=== PATIENT | male | born 1955 | race Caucasian/White ===

== ENCOUNTER 2022-12-10 20:31 | Emergency (ER) | payer BC, SELFPAY ==
[2022-12-10] VITALS (15 sets, daily range): BP systolic 84–97; BP diastolic 54–78; PULSE 108–122; RESP 14–30; TEMP 36.4; O2SAT 96
--- NOTE | 2022-12-10 20:30 | RT.EKG_ITS ---
APPROVED REPORT Exam: Resting ECG Reason for Exam: Abd pain Patient Location: E HR:111 bpm ECG Measurements Heart Rate 111 AXIS NH 145 P 48 QRSd 86 QRS 32 QT [id number] T 57 QTc 0 Conclusion Gender not entered, assumed to be male for purpose of ECG interpretation Sinus tachycardia...rate> 99
--- NOTE | 2022-12-10 20:49 | ED.GENADUL_ITS ---
Discharge Plan Disposition Patient Disposition: Home Condition: Stable Discharge Details Clinical Impression: Nausea & vomiting Primary Care Provider: Torsten Irene ED Provider: Adeel Carnes Home Meds and New Rx's Prescriptions: Continued aspirin [Adult Aspirin Regimen] 81 mg tablet,delayed release (DR/EC) 81 mg PO DAILY losartan 100 mg tablet 100 mg PO DAILY pantoprazole 40 mg tablet,delayed release (DR/EC) 40 mg PO DAILY sertraline 50 mg tablet 50 mg PO DAILY spironolactone 25 mg tablet 25 mg PO DAILY prochlorperazine maleate 10 mg tablet 10 mg PO PRN PRN glimepiride 1 mg tablet oxycodone 5 mg tablet 5 - 10 mg PO PRN PRN Patient Comments: TAKE ONE TO TWO TABLETS BY MOUTH EVERY 4 HOURS NEEDED FOR PAIN Eliquis 5 mg tablet 5 mg PO BID Patient Comments: TAKE ONE TABLET BY MOUTH TWICE A DAY Creon 36,000-114,000- 180,000 unit capsule,delayed release(DR/EC) 2 cap PO TID Patient Comments: TAKE TWO CAPSULES BY MOUTH WITH MEALS THREE TIMES A DAY AND ONE CAPSULE WITH A SNACK FOR A TOTAL OF 9 CAPSULES PER DAY Discharge Instructions Instructions: Acute Nausea and Vomiting (ED) Additional Instructions: Your blood work and imaging did not show any new concerning findings at this time Follow up with Dr. Murrell as scheduled if you feel more ill, have high fevers or persistent vomiting return to the emergency department Medical Decision Making 67 yo male with hx of pancreatic cancer who started chemotherapy last week, comes in with intermittent n/v and decreased po intake since. HAs had intermittent abdominal pain as well but states this started before chemo and has no pain currently. HE denies fevers, chills, chest pain, dyspnea. HE arrives caox4 speaking clearly. He is tachycardic on my exam at 110bpm and bp 100/60, no fever and normal oxygenation. Abdomen is soft with mild mid abdomen tenderness, no guarding or rebound. Suspect this is related to his cancer treatment, will treat with fluids, and no relief with zofran given with ems, qtc reassuring, will trial droperidol. Will also check cbc, cmp, lipase. I recommended ct to rule out acute surgical pathology but patient declines as he states pain is chronic and unchanged, and he has decision making capacity and understands risks of missing diagnoses such as sbo including disability and and is willing to accept these risks. Will reassess after labs and medications/fluids. pt feeling better after droperidol and oxycodone which he requested, cmp still pending but does have bands on cbc and procal is 1.5, will proceed with imaging of his chest and abdomen/pelvis to evaluate for potential infectious etiologies such as pneumonia or abscess. imaging shows no acute findings, he has a hr now of 80 and bp 110/70 so his prior dehydration/hypovolemia seems corrected and he is tolerating po. Will discuss case with oncology spoke with oncology Dr. Joyner at [facility] [place] who reviewed the case and during recovery phase from chemo bandemia is not unexpected, given patient feels better, stable vitals, not neutropenic and no fevers no indication for iv abx or hospitalization. PAtient feels well enough for d/c and has f/u later today with his oncologist Dr. Murrell, return precautions given Differential Diagnosis Differential Diagnosis: chemo reaction, dehydration, electrolyte abnormality Medical Records Medical records reviewed: Yes I reviewed the patient's medical records. Imaging Data Radiologic Study: Attestation: I personally reviewed and interpreted this imaging study as follows: Imaging: CT Scan Radiologist's impression: IMPRESSION: 1. No acute findings. No evidence of pulmonary emboli, aneurysm or dissection. 2. Mild emphysema. IMPRESSION: Pancreatic mass consistent with known pancreatic cancer. Multiple lesions seen throughout the liver, majority of which are cysts. Other hypodensities are too small to characterize. Suggest comparison with prior studies when available to evaluate for stability. Colonic diverticulosis. Fluid levels in the colon which are nonspecific but can be seen with gastroenteritis. Mild circumferential wall thickening in an underdistended bladder. This may represent mild cystitis versus underdistention artifact. Lab Data Lab results reviewed: Yes I reviewed the patient's lab results. ECG Data Attestation: I personally reviewed and interpreted this ECG (s) as follows: Prior ECG tracings: available for review Interpretation: sinus rhythm, rate of 98, qtc 424, no stemi HPI General Mode of arrival: EMS . Date/Time Provider Initiated Documentation: 12/10/22 20:37 . Limitations to Documentation: no limitations . Information obtained by: patient and family . History of Present Illness 67 year old M presents to the emergency department with the chief complaint of n/v, described as moderate, Patient started experiencing this day(s) (7) and it has been intermittent. No relieving factors improve symptom(s), No exacerbating factors reported . Patient notes denies chest pain, fever/chills and shortness of breath. Patient did receive the following treatments prior to arrival, none Related Data Home Medications Medication Instructions Recorded Confirmed losartan 100 mg tablet 100 mg PO DAILY 08/05/20 12/10/22 pantoprazole 40 mg tablet,delayed 40 mg PO DAILY 08/05/20 12/10/22 release sertraline 50 mg tablet 50 mg PO DAILY 08/05/20 12/10/22 spironolactone 25 mg tablet 25 mg PO DAILY 08/05/20 12/10/22 aspirin 81 mg tablet,delayed 81 mg PO DAILY 10/22/22 12/10/22 release (Adult Aspirin Regimen) apixaban 5 mg tablet (Eliquis) 5 mg PO BID 12/10/22 12/10/22 glimepiride 1 mg tablet mg 12/10/22 12/10/22 [id number]-[id number] 2 cap PO TID 12/10/22 12/10/22 36,000-114,000-180,000 unit capsule,delay rel (Creon) oxycodone 5 mg tablet 5 - 10 mg PO PRN PRN 12/10/22 12/10/22 prochlorperazine maleate 10 mg 10 mg PO PRN PRN 12/10/22 12/10/22 tablet Allergies Allergy/AdvReac Type Severity Reaction Status Date / Time hydrochlorothiazide Allergy Unverified 12/10/22 20:37 midazolam [From Versed] AdvReac oversedatio Verified 08/04/22 08:30 n erythromycin Allergy Unknown Uncoded 10/22/22 08:52 General Stated Complaint: Dizzy/Sync NADINE: 3 Review of Systems All systems reviewed & are unremarkable except as noted in HPI and below Constitutional Constitutional: Denies chills and Denies fever(s) Cardiovascular Cardiovascular: Denies chest pain and Denies dyspnea Respiratory Respiratory: Denies cough and Denies dyspnea Musculoskeletal Musculoskeletal: Denies joint swelling Integumentary/Breasts Skin/Breast: Denies rash PFSH All Active Problems (Updated 12/11/22 @ 00:07 by Adeel Carnes MD) Nausea & vomiting (Acute) BMI 40.0-44.9, adult (Acute) Tobacco use disorder (Acute) Liver lesion (Acute) Mononeuritis multiplex (Acute) Diabetes mellitus (Chronic) Pain, foot (Acute) Corns and callosities (Acute) Nail dystrophy (Acute) Left carpal tunnel syndrome (Acute) Medical History (Updated 12/11/22 @ 00:07 by Adeel Carnes MD) AAA (abdominal aortic aneurysm) Acquired cystic kidney disease Depression GERD (gastroesophageal reflux disease) Hyperlipidemia Hypertension Impaired fasting glucose Obesity Surgical History (Updated 10/26/22 @ 15:13 by Shanda Wren RN) History of appendectomy History of knee surgery History of vascular surgery Hx of abdominal surgery S/P vascular surgery (10/13/22) s/p axillary-femoral bypass with synthetic conduit, right Status post AAA (abdominal aortic aneurysm) repair Social History Smoking/Tobacco Use Status: Current every day Smoking risk assessment performed?: Yes Alcohol Intake: never Drug use: Never Household members: spouse and children Housing: house Number of Children: 4 Pets and animals: Yes Pets and animals: cat(s) and dog(s) What is your relationship status?: Panel score (0-1 are the most socially isolated patients): 1 What type of physical activity do you participate in: none Seatbelt use: always Do you feel safe at home: Yes Do you feel safe in your relationship?: Yes Exam Const General: no acute distress Orientation: alert HENCT Head: normal to inspection Ears: external ears normal General nose exam: external nose normal Mouth: moist mucous membranes Eyes General: appearance normal, both eyes and all related structures Neck Neck: normal visual inspection Resp Effort & Inspection: normal respiratory effort and able to speak in complete sentences Auscultation: clear to auscultation bilaterally Cardio Jugular venous pressure: no JVD Rate: regular rate Heart Sounds: no murmurs GI Palpation: soft and nontender Skin General skin exam: no rashes or lesions noted Neuro General: patient alert and patient oriented x3 Extrem General: normal to inspection Psych Mental Status: mental status grossly normal Course Vital Signs Vital signs: Vital Signs Temperature 36.4 C L 12/10/22 20:28 Pulse 118 H 12/10/22 20:28 Respiratory Rate 18 12/10/22 20:28 Blood Pressure 97/78 L 12/10/22 20:28 Pulse Oximetry 96 12/10/22 20:28 Temperature 36.4 C L 12/10/22 20:28 Temperature Source Oral 12/10/22 20:28 Pulse 118 H 12/10/22 20:28 Respiratory Rate 18 12/10/22 20:28 Blood Pressure 97/78 L 12/10/22 20:28 Blood Pressure Position Sitting 12/10/22 20:28 Pulse Oximetry 96 12/10/22 20:28 Oxygen Delivery Method Room Air 12/10/22 20:28 Oxygen Flow Rate 0 12/10/22 20:28 Pain Level 8 12/10/22 20:28
[2022-12-10] MEDS: HYDROmorphone 2 MG/ML SYR 1 MG IVP (21:01)
[2022-12-10] MEDS: Droperidol 5 MG/2 ML VIAL 2.5 MG IVP (21:02)
[2022-12-10] MEDS: Normal Saline 1,000 ML 1000 ML IV (21:04)
[2022-12-10 21:08] LABS: Abs Immature Grans 0.01 10^3/uL (0.0-0.06); HCT 44.3 % (40.0-50.0); HGB 14.6 g/dL (13.5-17.5); MCH 28.7 pg (27.0-33.0); MCV 87 fL (80-95); MPV 10.2 fL (8.0-11.0); Platelet Count 204 10^3/uL (130-400); RBC 5.08 10^6/uL (4.36-5.78); RDW 12.9 % (11.8-14.1); RDW-SD 41.1 fL
[2022-12-10 21:14] LABS: Lipase 15 U/L (16-77); Magnesium 1.9 mg/dL (1.8-2.4)
[2022-12-10 21:15] LABS: INR 1.2 (0.9-1.1); PTT Activated 23.6 sec (21.5-31.9); Prothrombin Time 12.6 sec (9.3-11.0)
[2022-12-10] MEDS: oxyCODONE 5 MG TAB PO (21:19)
[2022-12-10 21:29] LABS: Absolute Eosinophil Count 0.02 10^3/uL (0.0-0.7); Absolute Lymphocyte Count 0.26 10^3/uL (1.2-3.4); Absolute Monocyte Count 0.14 10^3/uL (0.1-0.8)
[2022-12-10 21:30] LABS: Absolute Neutrophil Count 1.17 10^3/uL (1.2-6.7); Bands % 18; Metamyelocytes % 3; Myelocytes % 2; Promyelocytes % 2
[2022-12-10 21:31] LABS: Diff Comment Manual Differential; RBC Morphology Normal
[2022-12-10 21:37] LABS: COVID-19 PCR Negative (Negative); Influenza A PCR Negative (Negative); Influenza B PCR Negative (Negative); RSV PCR Negative (Negative)
[2022-12-10 21:49] LABS: Source Nasopharynx
[2022-12-10 21:56] LABS: Procalcitonin 1.5 ng/mL
[2022-12-10 22:22] LABS: ALT 121 U/L (16-63); AST 50 U/L (15-37); Albumin 2.1 g/dL (3.4-5.0); Alkaline Phosphatase 277 U/L (46-116); Anion Gap 13.3 mmol/L (3-11); BUN 41 mg/dL (7-18); Bilirubin, Total 1.7 mg/dL (0.2-1.0); CO2 20.7 mmol/L (21.0-32.0); CREATININE 1.6 mg/dL (0.70-1.30); Calcium 8.8 mg/dL (8.5-10.1); Chloride 103 mmol/L (98-107); Estimated GFR 46.93 (mL/min/1.73m2); Glucose 240 mg/dL (74-106); Potassium 4.4 mmol/L (3.5-5.1); Sodium 137 mmol/L (136-145); TSH 1.96 uIU/mL (0.36-3.74); Total Protein 5.5 g/dL (6.4-8.2)
[2022-12-10] MEDS: Omnipaque 350 MG/ML 100 ML BTL IJ (22:51)
[2022-12-10] MEDS: Normal Saline - Diluent 50 ML VIAL IJ (22:52)
--- NOTE | 2022-12-10 23:00 | DI.CT_ITS ---
Exam(s) CT CHEST PE ABD PELVIS W EXAM: CT CHEST PE ABD PELVIS W CLINICAL HISTORY: pancreatic cancer, hypotension, sepsis. TECHNIQUE: Imaging Protocol: Axial CT angiography was performed with multi-slice acquisition and mu lti-planar and/or 3D reconstructions. CONTRAST MATERIAL: Intravenous: Omnipaque 350contrast volume:100 mL COMPARISON: No exams were available for comparison FINDINGS: CHEST: Tracheobronchial tree: Patent where visualized. Pulmonary parenchyma: No consolidation or dominant measurable mass. No architectural distortion. Mild centrilobular emphysema. Pulmonary Arteries: No evidence of filling defect to suggest pulmonary emboli. Mediastinum and Tejal: No dominant adenopathy or fluid collection. The esophagus is unremarkable. Visualized thyroid gland: Unremarkable. Pleura: No effusion or pneumothorax. Heart: The heart is not dilated. No coronary artery calcifications are seen. No pericardial effusion. Aorta: Thoracic aorta non-dilated. No evidence of dissection. Mild atherosclerosis. Bones: Within normal limits for the patient's age. No aggressive osseous lesions. Soft tissues: Gynecomastia. Tubes, Catheters, and Lines: There is a Port-A-Cath type catheter in place. ABDOMEN: Liver: Normal density. There are multiple hepatic masses consistent with metastatic disease. Portal, Superior Mesenteric, and Splenic Veins: Unremarkable. Gallbladder and Biliary Tract: No radiodense calculus or dilation. Pancreas: There is a hypodense 4 x 4 there mass seen in the proximal pancreas consistent with the pat ient's known pancreatic tumor. There is atrophy of the tail and body of the pancreas with dilatation of the pancreatic duct. Spleen: Normal. Adrenals: Mild bilateral adrenal limb thickening. Kidneys: Normal size, contour and axis. No radiodense stones or obstructive uropathy. There are sever al left renal simple cysts. No follow-up is recommended. Abdominal Aorta: There is a infrarenal abdominal aortic aneurysm with a aorta bi femoral stent in wilma ce. Note is also made of an axillary bifem stent. Atherosclerosis is present. Bowel: There are scattered diverticula seen in the colon, but no evidence of acute diverticulitis. N o evidence of bowel obstruction or inflammation. There is no evidence of appendicitis. Peritoneal Cavity: No ascites, collection or mesenteric inflammatory response. No free air. Lymph Nodes: There is adenopathy in the upper abdomen adjacent to the pancreatic head. Bones: Within normal limits for the patient's age. Soft Tissues: Unremarkable. PELVIS: Bladder: The urinary bladder is incompletely distended. This likely accounts for the apparent thicke rodney of the wall of the urinary bladder. Reproductive Organs: Unremarkable as visualized. Lymph Nodes: Within normal limits. Bones: Within normal limits. IMPRESSION: 1. No evidence pulmonary embolism, thoracic aortic dissection or aneurysm. 2. No acute pulmonary process. 3. Pancreatic mass consistent with the patient's known pancreatic cancer. 4. Hepatic masses likely metastatic disease. RADIATION DOSE DELIVERED: 1,721.88mGy.cm Total DLP DATA REPOSITORY: All CT scans at this facility are submitted to the National Radiology Data Registry (NRDR) Dose Index Registry (DIR) with the [employer] ([employer]). RADIATION OPTIMIZATION: All CT scans at this facility use at least one of these dose optimization te chniques: automated exposure control; mA and/or kV adjustment per patient size (includes targeted exa ms where dose is matched to clinical indication); or iterative reconstruction.
--- NOTE | 2022-12-10 23:39 | DI.VRAD_ITS ---
PROCEDURE INFORMATION: Exam: CTA Chest With Contrast Exam date and time: 12/10/2022 10:51 PM Age: 67 years old Clinical indication: Other: Pancreatic cancer, hypotension, sepsis TECHNIQUE: Imaging protocol: Computed tomographic angiography of the chest with contrast. 3D rendering (Not supervised by radiologist): MIP and/or 3D reconstructed images were created by the technologist. Radiation optimization: All CT scans at this facility use at least one of these dose optimization techniques: automated exposure control; mA and/or kV adjustment per patient size (includes targeted exams where dose is matched to clinical indication); or iterative reconstruction. Contrast material: OMNIPAQUE 350; Contrast volume: 100 ml; Contrast route: INTRAVENOUS (IV); COMPARISON: No relevant prior studies available. FINDINGS: Tubes, catheters and devices: There is a left chest wall Port-A-Cath with tip in the right atrium. Pulmonary arteries: Normal. No pulmonary emboli. Aorta: Atherosclerotic disease. No aortic aneurysm or dissection. Other arteries: There is a proximal stent seen in a patent ight axillary femoral bypass. Lungs: Linear atelectasis at the lung bases. Mild centrilobular emphysema. Dependent atelectasis. Pleural spaces: Unremarkable. No pneumothorax. No pleural effusion. Heart: Heart size is normal. No pericardial effusion. Lymph nodes: No pathologic sized adenopathy. Bones/joints: Degenerative changes throughout the spine. Soft tissues: Mild bilateral gynecomastia. IMPRESSION: 1. No acute findings. No evidence of pulmonary emboli, aneurysm or dissection. 2. Mild emphysema. PROCEDURE INFORMATION: Exam: CT Abdomen And Pelvis With Contrast Exam date and time: 12/10/2022 10:51 PM Age: 67 years old Clinical indication: Other: Pancreatic cancer, hypotension, sepsis TECHNIQUE: Imaging protocol: Computed tomography of the abdomen and pelvis with contrast. Radiation optimization: All CT scans at this facility use at least one of these dose optimization techniques: automated exposure control; mA and/or kV adjustment per patient size (includes targeted exams where dose is matched to clinical indication); or iterative reconstruction. Contrast material: OMNIPAQUE 350; Contrast volume: 100 ml; Contrast route: INTRAVENOUS (IV); COMPARISON: No relevant prior studies available. FINDINGS: Liver: Multiple fluid attenuation lesions are seen throughout the liver measuring up to 4.1 cm in the right liver. Other scattered smaller hypodensities are visualized in the liver too small to characterize. Gallbladder and bile ducts: No intrahepatic biliary ductal dilatation. Common duct is normal in caliber. Pancreas: Pancreatic head is atrophic. There is a heterogeneous approximately 4 x 4 cm mass in the proximal pancreatic body. Pancreatic duct is dilated to 8 mm distal to this. Spleen: Normal. No splenomegaly. Adrenal glands: Bilateral mild adrenal thickening. Kidneys and ureters: Kidneys enhance symmetrically. Bilateral renal cysts measuring up to 5.4 cm on the left. No renal stones or hydronephrosis. Stomach and bowel: Colonic diverticulosis. Fluid levels are seen in the colon. Stomach and small bowel are unremarkable. Appendix: Appendix is not identified. Intraperitoneal space: Unremarkable. No free air. No significant fluid collection. Vasculature: There is an aortic bypass. Right limb is occluded. An occluded femoral femoral bypass is also seen. Embolization coils are seen in the left internal iliac artery. Lymph nodes: Peripancreatic nodes are seen measuring up to 1.6 cm. Urinary bladder: Nonspecific wall thickening of the underdistended urinary bladder. Reproductive: Unremarkable as visualized. Bones/joints: Degenerative changes throughout the spine. Soft tissues: Unremarkable. IMPRESSION: Pancreatic mass consistent with known pancreatic cancer. Multiple lesions seen throughout the liver, majority of which are cysts. Other hypodensities are too small to characterize. Suggest comparison with prior studies when available to evaluate for stability. Colonic diverticulosis. Fluid levels in the colon which are nonspecific but can be seen with gastroenteritis. Mild circumferential wall thickening in an underdistended bladder. This may represent mild cystitis versus underdistention artifact. Dictated and Authenticated by: Nithya Villavicencio MD. Ordering:MCKENZIE Denis MD
[2022-12-11 00:12] VITALS: BP 106/75; PULSE 101; RESP 22; TEMP 36.5; O2SAT 98
== END 2022-12-11 00:37 | disposition home or self-care (01) ==
PROVIDERS: Emergency Provider Emergency Medicine; PCP Neuromusculoskeletal Medicine & OMM
DX: R11.2 Nausea with vomiting, unspecified (principal); R10.9 Unspecified abdominal pain; R00.0 Tachycardia, unspecified; I10 Essential (primary) hypertension; Z79.82 Long term (current) use of aspirin; Z20.822 Contact with and (suspected) exposure to COVID-19
CPT/HCPCS: 71275; 74177; 80053; 83690; 84145; 86850; 86900; 86901; 87040; 87637; 93005; 96361; 96374; 96375; 99285; 83735; 84443; 85025; 85610; 85730; 93010; J1170; J1790; J3490